=== PATIENT | female | born 1985 | race Two or more races ===

== ENCOUNTER 2017-10-31 12:51 | Day surgery (SDC) | payer OTHER ==
[~2017-10-31 12:51] MED LIST: ceFAZolin SODIUM 1 GM VIAL IVPB ONE
[2017-10-31 13:08] VITALS: BMI 18.5
--- NOTE | 2017-10-31 13:37 | PDOC ---
History of Present Illness - General History Source: Patient Exam Limitations: No Limitations - History of Present Illness Initial Comments: 10/31/17 14:25 The patient is a 32 year old female A3 with a significant PMH of PCOS and recent Methotrexate treatment for suspected ectopic who presents to the emergency department with 2 days of RLQ abdominal pain with an episode of vaginal bleeding, and for evaluation of B-HcG level. The patient reports noting a positive home test about 2 weeks ago and confirming with Dr. Sandhu through bloodwork. She notes however that Dr. Sandhu did not visualize a gestational sac through US and became concerned. After repeat bloodwork and ultrasound, the patient reports Dr. Sandhu determined the to be ectopic and initiated Methotrexate treatment this past Tuesday in the setting of the patients vaginal bleeding. She presents today after repeat blood work on Tuesday showed an increasing B-HcG level despite Methotrexate. She describes her RLQ abdominal pain as 10/10 in severity at presentation with radiation to her right lower back, which is aggravated by movement. She reports vaginal bleeding on Tuesday and yesterday, but currently denies vaginal bleeding at presentation. The patient notes she is unsure when her last menstruation was, but states that she usually has irregular menses. The patient denies chest pain, shortness of breath, headache, and dizziness. Denies fevers, chills, nausea, vomit, diarrhea, and constipation. Denies dysuria, frequency, urgency, and hematuria. Allergies: NKA Past surgical history: 1 . Social history: Current someday smoker. Occasional alcohol use. No reported drug use. PCP/OB: Dr. Foreign Sandhu <Morena Mariscal - Last Filed: 10/31/17 18:23> <Tosha Joy - Last Filed: 11/02/17 11:20> - General Chief Complaint: [facility] [place] Stated Complaint: PCP SENT Time Seen by Provider: 10/31/17 13:34 Past History <Morena Mariscal - Last Filed: 10/31/17 18:23> - Past Medical History COPD: No - Immunization History Immunization Up to Date: Yes - Suicide/Smoking/Psychosocial Hx Smoking History: Current some day smoker Number of Cigarettes Smoked Daily: 3 Cigars Per Day: 0 Information on smoking cessation initiated: No Hx Alcohol Use: Yes <Tosha Joy - Last Filed: 11/02/17 11:20> - Past Medical History Allergies/Adverse Reactions: Allergies Allergy/AdvReac Type Severity Reaction Status Date / Time No Known Allergies Allergy Verified 10/31/17 13:03 Home Medications: Ambulatory Orders Ibuprofen [Motrin -] 600 mg PO Q4H PRN #60 tablet 11/01/17 Review of Systems - Review of Systems Able to Perform ROS?: Yes Comments:: 10/31/17 14:25 GENERAL/CONSTITUTIONAL: No fever or chills. No weakness. HEAD, EYES, EARS, NOSE AND THROAT: No change in vision. No ear pain or discharge. No sore throat. CARDIOVASCULAR: No chest pain or shortness of breath. RESPIRATORY: No cough, wheezing, or hemoptysis. GASTROINTESTINAL: (+) RLQ abdominal pain with radiation to right lower back. No nausea, vomiting, diarrhea or constipation. GENITOURINARY: (+) 1 episode of vaginal bleeding. No dysuria, frequency, or change in urination. MUSCULOSKELETAL: No joint or muscle swelling or pain. No neck or back pain. SKIN: No rash NEUROLOGIC: No headache, vertigo, loss of consciousness, or change in strength/ sensation. ENDOCRINE: No increased thirst. No abnormal weight change. HEMATOLOGIC/LYMPHATIC: No anemia, easy bleeding, or history of blood clots. ALLERGIC/IMMUNOLOGIC: No hives or skin allergy. <MatthewtawandaMickeyfrancisca - Last Filed: 10/31/17 18:23> *Physical Exam - Vital Signs Last Vital Signs Temp Pulse Resp BP Pulse Ox 79 F L 80 18 121/54 99 10/31/17 13:03 10/31/17 13:03 10/31/17 13:03 10/31/17 13:03 10/31/17 13:03 - Physical Exam Comments: 10/31/17 14:26 GENERAL: Awake, alert, and fully oriented, in no acute distress HEAD: No signs of trauma EYES: PERRLA, EOMI, sclera anicteric, conjunctiva clear ENT: Auricles normal inspection, hearing grossly normal, nares patent, oropharynx clear without exudates. Moist mucosa NECK: Normal ROM, supple, no lymphadenopathy, JVD, or masses LUNGS: Breath sounds equal, clear to auscultation bilaterally. No wheezes, and no crackles HEART: Regular rate and rhythm, normal S1 and S2, no murmurs, rubs or gallops ABDOMEN: (+) Lower abdominal tenderness. Normoactive bowel sounds. No guarding , no rebound. No masses EXTREMITIES: Normal range of motion, no edema. No clubbing or cyanosis. No cords, erythema, or tenderness NEUROLOGICAL: Cranial nerves II through XII grossly intact. Normal speech, normal gait SKIN: Warm, Dry, normal turgor, no rashes or lesions noted. <Morena Mariscal - Last Filed: 10/31/17 18:23> - Vital Signs Last Vital Signs Temp Pulse Resp BP Pulse Ox 79 F L 80 18 121/54 99 10/31/17 13:03 10/31/17 13:03 10/31/17 13:03 10/31/17 13:03 10/31/17 13:03 <Tosha Joy - Last Filed: 11/02/17 11:20> ED Treatment Course - LABORATORY CBC & Chemistry Diagram: 10/31/17 14:15 10/31/17 14:15 <Morena Mariscal - Last Filed: 10/31/17 18:23> - LABORATORY CBC & Chemistry Diagram: 10/31/17 14:15 10/31/17 14:15 <Tosha Joy - Last Filed: 11/02/17 11:20> Medical Decision Making - Medical Decision Making 10/31/17 17:[address] Sandhu at 17:30. 10/31/17 18:[address] Kong at 17:40, who said she would come down and see the patient. <Morena Mariscal - Last Filed: 10/31/17 18:23> - Medical Decision Making 10/31/17 14:46 Ms Jesus is a 32 yo , unclear LMP (h/o PCOS) recently found out that she is Patient states she was told that she is possibly 2 weeks ago. This was confirmed by her custom decorating consultant. She has been followed weekly with serial beta hCG testing. She has had a rising beta hCG. Her gear technician was unable to find a on ultrasound. Last week he determined that she had an ectopic, therefore treated her with methotrexate. She has noted some vaginal bleeding since yesterday Yesterday she developed lower abdominal pain which worsened today. No lightheadedness, dizziness, chest pain, weakness. Pain is located in the right lower abdomen, described as severe, rated 11/10, radiation to her back. Patient has saturated 1 pad per hour for the course of today. Differential diagnosis includes but is not limited to: Termination of , ectopic , ruptured ectopic . Will do: Labs Ultrasound Contact patient's primary WINDING RACK OPERATOR Consult with digital archivist master control engineer 10/31/17 15:18 Laboratory Tests 10/31/17 10/31/17 14:15 14:15 WBC 7.2 Hgb 11.6 Hct 33.2 Plt Count 250 Sodium 139 Potassium 3.4 L Chloride 105 Carbon Dioxide 26 Anion Gap 8 BUN 8 Creatinine 0.6 Random Glucose 102 Beta HCG, Quant 558.3 Please note BHCG at digital archivist's office >1000 Dr Kong in the ER to see this patient She left to review US images Will return to give us the plan Pt signed out to Dr Castillo Clinical Impression: possible ruptured ectopic , initial presentation <Tosha Joy - Last Filed: 11/02/17 11:20> *DC/Admit/Observation/Transfer - Attestations Scribe Attestion: 10/31/17 14:26 Documentation prepared by Morena Mariscal, acting as medical superintendent for Tosha Joy MD. <Morena Mariscal - Last Filed: 10/31/17 18:23> <Tosha Joy - Last Filed: 11/02/17 11:20> Diagnosis at time of Disposition: Ectopic Qualifiers: Location of ectopic : unspecified location Intrauterine status: unspecified Qualified Code(s): O00.90 - Unspecified ectopic without intrauterine - Discharge Dispostion Condition at time of disposition: Good
[2017-10-31] MEDS ORDERED: morphine CARPU-JECT 4 MG/1 ML DISP.SYRIN IVPUSH ONE (13:55)
[2017-10-31] MEDS ORDERED: SODIUM CHLORIDE 1,000 ML IV STA (14:03)
[2017-10-31] MEDS ORDERED: morphine SULFATE 4 MG/ML VIAL ONE (14:27)
[2017-10-31 14:33] LABS: BASO % 0.4 % (0-2.0); EOS % 0.7 % (0-4.5); HEMATOCRIT 33.2 % (32.4-45.2); HEMOGLOBIN 11.6 GM/dL (10.7-15.3); LYMPH % 34.7 % (8-40); MCH 33.9 pg (25.7-33.7); MEAN CELL VOLUME 96.7 fl (80-96); MEAN PLT VOLUME 7.1 fl (7.5-11.1); MONO % 3.8 % (3.8-10.2); NEUT % 60.4 % (42.8-82.8); PLATELET COUNT 250 K/MM3 (134-434); RBC 3.43 M/mm3 (3.60-5.2); RDW 13.1 % (11.6-15.6); WHITE BLOOD COUNT 7.2 K/mm3 (4.0-10.0)
[2017-10-31 15:06] LABS: ALBUMIN 3.5 g/dl (3.4-5.0); ANION GAP 8 (8-16); BILIRUBIN,TOTAL 0.6 mg/dL (0.2-1.0); BLOOD UREA NITROGEN 8 mg/dL (7-18); CALCIUM 8.4 mg/dL (8.5-10.1); CHLORIDE 105 mmol/L (98-107); CO2 26 mmol/L (21-32); CREATININE 0.6 mg/dL (0.55-1.02); GLUCOSE,RANDOM 102 mg/dL (74-106); POTASSIUM 3.4 mmol/L (3.5-5.1); SGOT/AST 9 U/L (15-37); SGPT/ALT 12 U/L (12-78); SODIUM 139 mmol/L (136-145); TOT PROT 6.8 g/dl (6.4-8.2)
[2017-10-31 15:09] LABS: ALK PHOS 72 U/L (45-117)
[2017-10-31 16:35] LABS: URINE APPEARANCE CLEAR; URINE BILIRUBIN NEGATIVE (<2.0 mg/dL); URINE COLOR LTYELLOW; URINE GLUCOSE (UA) NEGATIVE (NEGATIVE); URINE KETONE NEGATIVE (NEGATIVE); URINE LEUK ESTERASE NEGATIVE (NEGATIVE); URINE NITRITE NEGATIVE (NEGATIVE); URINE PROTEIN NEGATIVE (NEGATIVE); URINE UROBILINOGEN NEGATIVE mg/dL (0.2-1.0)
[2017-10-31 16:43] LABS: EPI CELLS FEW /HPF (FEW); URINE BACTERIA FEW /hpf (NONE SEEN); URINE HYALINE CAST 4 /lpf; URINE MUCUS MANY
--- NOTE | 2017-10-31 20:41 | PDOC ---
*Physical Exam - Vital Signs Last Vital Signs Temp Pulse Resp BP Pulse Ox 97.9 F 80 18 121/54 99 10/31/17 13:03 10/31/17 13:03 10/31/17 13:03 10/31/17 13:03 10/31/17 13:03 ED Treatment Course - LABORATORY CBC & Chemistry Diagram: 10/31/17 14:15 10/31/17 14:15 - ADDITIONAL ORDERS Additional order review: Laboratory Results 10/31/17 10/31/17 10/31/17 14:35 14:15 14:15 Sodium 139 Potassium 3.4 L Chloride 105 Carbon Dioxide 26 Anion Gap 8 BUN 8 Creatinine 0.6 Creat Clearance w eGFR > 60 Random Glucose 102 Calcium 8.4 L Total Bilirubin 0.6 AST 9 L ALT 12 Alkaline Phosphatase 72 Total Protein 6.8 Albumin 3.5 Beta HCG, Quant 558.3 Urine Color Ltyellow Urine Appearance Clear Urine pH 5.0 Ur Specific Mammoth 1.010 Urine Protein Negative Urine Glucose (UA) Negative Urine Ketones Negative Urine Blood 3+ H Urine Nitrite Negative Urine Bilirubin Negative Urine Urobilinogen Negative Ur Leukocyte Esterase Negative Urine WBC (Auto) 3 Urine RBC (Auto) 1 Ur Epithelial Cells Few Urine Bacteria Few Hyaline Casts 4 Urine Mucus Many Blood Type O POSITIVE Antibody Screen Negative 10/31/17 14:15 RBC 3.43 L MCV 96.7 H MCHC 35.0 RDW 13.1 MPV 7.1 L Neutrophils % 60.4 Lymphocytes % 34.7 Monocytes % 3.8 Eosinophils % 0.7 Basophils % 0.4 - Medications Given in the ED: ED Medications Discontinued Medications Generic Name Dose Route Start Last Admin Trade Name Corrie PRN Reason Stop Dose Admin Morphine Sulfate 4 mg 10/31/17 13:55 10/31/17 14:40 Morphine Injection - IVPUSH 10/31/17 13:56 4 mg ONCE ONE Administration Medical Decision Making - Medical Decision Making 10/31/17 20:[address] Kong. Pt will be going to the OR for ectopic . Case discussed in detail with admitting physician including history, physical exam and ancillary studies. Admitting physician has assumed care for the patient, will follow all pending diagnostics and will complete the evaluation and treatment. *DC/Admit/Observation/Transfer Diagnosis at time of Disposition: Ectopic Qualifiers: Location of ectopic : unspecified location Intrauterine status: unspecified Qualified Code(s): O00.90 - Unspecified ectopic without intrauterine - Discharge Dispostion Condition at time of disposition: Stable Admit: Yes - Referrals Referrals: Foreign Sandhu [Primary Care Provider] - - Patient Instructions - Post Discharge Activity
--- NOTE | 2017-10-31 20:50 | CON.OBG ---
Consult Consult Specialty:: SOCIAL SERVICES ASSISTANT Reason for Consultation:: Ectopic - History of Present Illness Chief Complaint: Pelvic pain / Vaginal bleeding History of Present Illness: 32 yo with chemical status post Metothrexate injection at a doctor's office in [place]. LMP 08/15/17. She was seen today at the Dr's office and was told to come to [facility] ER. Transvaginal sonogram reviewed, there's no gestational sac but there's evidence of a small mass on the right adnexa with pelvic fluid. BHCG is about 500 mIU. - History Source History Provided By: Patient Limitations to Obtaining History: No Limitations - Past Medical History ...LMP: 08/15/17 ...: Yes - Past Surgical History Past Surgical History: Yes: None - Alcohol/Substance Use Hx Alcohol Use: Yes History of Substance Use: reports: None - Smoking History Smoking history: Current some day smoker Aproximately how many cigarettes per day: 3 - Social History History of Recent Travel: No Home Medications - Allergies Allergies/Adverse Reactions: Allergies Allergy/AdvReac Type Severity Reaction Status Date / Time No Known Allergies Allergy Verified 10/31/17 13:03 - Home Medications Home Medications: Ambulatory Orders NK [No Known Home Medication] 10/31/17 Family Disease History - Family Disease History Family History: Unremarkable Review of Systems - Review of Systems Constitutional: reports: No Symptoms Eyes: reports: No Symptoms HENT: reports: No Symptoms Neck: reports: No Symptoms Cardiovascular: reports: No Symptoms Respiratory: reports: No Symptoms Gastrointestinal: reports: No Symptoms Genitourinary: reports: Pain Breasts: reports: No Symptoms Reported Musculoskeletal: reports: No Symptoms Integumentary: reports: No Symptoms Neurological: reports: No Symptoms Endocrine: reports: No Symptoms Hematology/Lymphatic: reports: No Symptoms Psychiatric: reports: No Symptoms Pain Intensity: 7 Physical Exam-SOCIAL SERVICES ASSISTANT Vital Signs: Vital Signs Temperature 97.9 F 10/31/17 13:03 Pulse Rate 80 10/31/17 13:03 Respiratory Rate 18 10/31/17 13:03 Blood Pressure 121/54 10/31/17 13:03 O2 Sat by Pulse Oximetry (%) 99 10/31/17 13:03 Constitutional: Yes: Well Nourished Eyes: Yes: Conjunctiva Clear HENT: Yes: Atraumatic Neck: Yes: Supple Cardiovascular: Yes: Regular Rate and Rhythm Respiratory: Yes: Regular Gastrointestinal: Yes: Normal Bowel Sounds External Genitalia: Yes: Normal Vaginal Exam: Yes: Bleeding Cervix: Yes: Cerv Motion Tenderness Uterus: Yes: Freely Moveable Adnexa: Tender: Right Breast(s): Yes: WNL Musculoskeletal: Yes: WNL Extremities: Yes: WNL Neurological: Yes: Alert, Oriented ...Motor Strength: WNL Psychiatric: Yes: Alert, Oriented Labs: CBC, BMP 10/31/17 14:15 10/31/17 14:15 Assessment/Plan Ruptured Ectopic Pre op for Laparoscopic salpingostomy, possible salpingectomy, possible oophorectomy Consent signed Anesthesia to see patient
[2017-10-31] MEDS ORDERED: MIDAZOLAM HCL 2 MG/2 ML SINGLE DOSE VIAL ONE (21:37)
[2017-10-31] MEDS ORDERED: DEXAMETHASONE SOD PHOSPHATE 4 MG/1 ML VIAL ONE (21:39)
[2017-10-31] MEDS ORDERED: LIDOCAINE HCL/PF 2% SDV 5ML VIAL ONE (21:39)
[2017-10-31] MEDS ORDERED: ROCURONIUM BROMIDE 50 MG/5 ML VIAL ONE (21:40)
[2017-10-31] MEDS ORDERED: PROPOFOL 20 ML ONE (21:40)
[2017-10-31] MEDS ORDERED: ceFAZolin SODIUM 1 GM VIAL ONE (21:49)
[2017-10-31] MEDS ORDERED: ePHEDrine SULFATE 50 MG/1 ML AMPULE ONE (22:11)
[2017-10-31] MEDS ORDERED: ONDANSETRON 4 MG/2 ML VIAL IVPUSH PRN (22:38)
[2017-10-31] MEDS ORDERED: NEOSTIGMINE METHYLSULFATE 0.5 MG/ML - 10 ML MDV ONE (22:40)
[2017-10-31] MEDS ORDERED: GLYCOPYRROLATE 0.2 MG/1 ML VIAL ONE (22:41)
[2017-10-31] MEDS ORDERED: ACETAMINOPHEN 325 MG TABLET (FP) PO PRN (22:51)
[2017-10-31] MEDS ORDERED: IBUPROFEN 400 MG TABLET (FP) PO PRN (22:51)
[2017-10-31] MEDS ORDERED: oxyCODONE HCL 5 MG TABLET PO PRN (22:51)
--- NOTE | 2017-10-31 22:51 | OP ---
Operative Note - Note: Operative Date: 10/31/17 Pre-Operative Diagnosis: Ectopic Operation: Laparoscopic right salpingectomy Findings: Rupture right tubal Post-Operative Diagnosis: Same as Pre-op Surgeon: Claudette Kong Screen Cleaner: [place] Anesthesia: General Specimens Removed: Tubal Estimated Blood Loss (mls): 20
[2017-10-31] MEDS ORDERED: BUPIVACAINE HCL/PF 0.5% (5MG/ML) 10 ML VIAL IJ ONE (22:59)
--- NOTE | 2017-11-01 08:01 | DS ---
Physical Exam-JOB CHANGE CREW MEMBER Vital Signs: Vital Signs Temperature 98.5 F 11/01/17 06:02 Pulse Rate 60 11/01/17 06:02 Respiratory Rate 20 11/01/17 06:02 Blood Pressure 104/51 11/01/17 06:02 O2 Sat by Pulse Oximetry (%) 100 10/31/17 23:40 Constitutional: Yes: Well Nourished Eyes: Yes: Conjunctiva Clear HENT: Yes: Atraumatic Neck: Yes: Supple Cardiovascular: Yes: Regular Rate and Rhythm Gastrointestinal: Yes: Normal Bowel Sounds Wound/Incision: Yes: Clean/Dry, Open to air Neurological: Yes: Alert, Oriented ...Motor Strength: WNL Psychiatric: Yes: Alert, Oriented Labs: CBC, BMP 10/31/17 14:15 10/31/17 14:15 Discharge Summary Reason For Visit: ECTOPIC Current Active Problems Ectopic (Acute) Procedures: Principal: Laparoscopic Right Salpingectomy Hospital Course: Patient presented to ER c/o pelvic pain and vaginal bleeding associated with chemical . She was taken to OR where a ruptured right tubal was found; salpingectomy was performed. Condition: Good - Instructions Diet, Activity, Other Instructions: Regular diet F/U with MD in 2 weeks Referrals: Foreign Sandhu [Primary Care Provider] - Disposition: HOME - Home Medications Comprehensive Discharge Medication List: Ambulatory Orders NK [No Known Home Medication] 10/31/17
[2017-11-01 08:39] VITALS: BP 94/53; PULSE 64; TEMP 98.4
--- NOTE | 2017-11-02 15:08 | PATH ---
Surgical Pathology Report Patient Name: ZELALEM BURNETT Med. Rec. #: [id number] /Age/Gender: 1985 (Age: 32) / F Account: [id number] Location: AMBULATORY SURG Taken: 10/31/2017 Received: 11/01/2017 Reported: 11/02/2017 Physicians: Claudette Kong M.D. Specimen(s) Received RIGHT FALLOPIAN TUBE AND CONTENTS Clinical History Ectopic Final Diagnosis RIGHT FALLOPIAN TUBE, SALPINGECTOMY: ECTOPIC (TUBAL) . Electronically Signed Femi Sagastume M.D. Gross Description Received in formalin labeled "right fallopian tube and contents," is a 4 cm in length dilated, fimbriated fallopian tube. The outer surface is de la garza purple and smooth. Separately received within the same container is a 3.0 x 1.8 x 0.5 cm aggregate of red-brown blood clot. Sectioning of the fallopian tube reveals a dilated lumen containing red-brown blood clot. No definite villous tissue or somatic tissue is identified. Helicopter Specialist sections are submitted in 4 cassettes as follows: 1-fimbria; 2-3-cross sections of fallopian tube; 4-separately received blood clot. /11/01/2017 saudi11/01/2017
== END 2017-11-01 10:10 | disposition home or self-care (01) ==
LOC: JER 12:51 → JASUSAT 20:41 → J3W 11-01 00:30 → JASUSAT 11-01 10:10
PROVIDERS: ATTEND Obstetrics & Gynecology
PROC: 0UB54ZZ Excision of Right Fallopian Tube, Percutaneous Endoscopic Approach (ICD-10-PCS; 2017-10-31)
PROC: 10T24ZZ Resection of Products of Conception, Ectopic, Percutaneous Endoscopic Approach (ICD-10-PCS; principal; 2017-10-31 22:00)
DX: O00.101 Right tubal pregnancy without intrauterine pregnancy (principal)
CPT/HCPCS: 36415; 76817-TC; 80053; 81003; 81015; 84702; 85025; 86850; 86900; 86901; 87086; 88305-TC; 94760; 99284-25; J7030